=== PATIENT | male | born 1995 | race Caucasian/White ===

== ENCOUNTER 2018-12-16 18:35 | Emergency (ER) | payer OTHER ==
[~2018-12-16] VITALS: Ht 165.1 cm; Wt 75.0 kg
[2018-12-16 18:36] VITALS: BP 119/65
[2018-12-16] MEDS ORDERED: predniSONE 20 MG TAB PO ONE (20:15)
[2018-12-16] MEDS ORDERED: FAMOTIDINE 20 MG TAB PO ONE (20:15)
[2018-12-16] MEDS ORDERED: PRED10TA2 PO (20:44)
[2018-12-16] MEDS ORDERED: PEPC1TAB5 PO (20:44)
== END 2018-12-16 20:49 | disposition home or self-care (01) ==
LOC: M ED 18:35
DX: L25.9 Unspecified contact dermatitis, unspecified cause (principal)

== ENCOUNTER 2019-09-25 18:42 | Emergency (ER) | payer OTHER ==
[~2019-09-25] VITALS: Ht 167.6 cm; Wt 79.8 kg
[~2019-09-25 18:42] MED LIST: PEPC1TAB5 PO; PRED10TA2 PO
[2019-09-25 20:17] LABS: BASO % 0.2 % (0.0-1.0); EOS # 0.1 10^3/uL (0.0-0.5); EOS % 0.5 % (0.0-3.0); HEMATOCRIT 48.7 % (42.0-52.0); HEMOGLOBIN 16.4 g/dl (13.5-17.5); LYMPH # 0.6 10^3/uL (1.5-5.0); LYMPH % 5.6 % (24.0-44.0); MEAN CORPUSCULAR HEMOGLOBIN 29.4 pg (27.0-33.0); MEAN CORPUSCULAR HGB CONC 33.7 g/dl (32.0-36.5); MEAN CORPUSCULAR VOLUME 87.3 fl (80.0-96.0); MONO # 0.6 10^3/uL (0.0-0.8); MONO % 5.4 % (0.0-5.0); NEUTROPHILS # 9.5 10^3/uL (1.5-8.5); PLATELET COUNT, AUTOMATED 248 10^3/uL (150-450); RED BLOOD COUNT 5.58 10^6/uL (4.30-6.10); WHITE BLOOD COUNT 10.8 10^3/uL (4.0-10.0)
[2019-09-25 20:27] LABS: ALBUMIN 4.5 GM/DL (3.2-5.2); ALT/SGPT 31 U/L (12-78); BILIRUBIN,DIRECT 0.2 MG/DL (0.0-0.2); BILIRUBIN,TOTAL 0.6 MG/DL (0.2-1.0); BLOOD UREA NITROGEN 14 MG/DL (7-18); CALCIUM LEVEL 9.4 MG/DL (8.5-10.1); CARBON DIOXIDE LEVEL 32 MEQ/L (21-32); CHLORIDE LEVEL 105 MEQ/L (98-107); CREATININE FOR GFR 1.12 MG/DL (0.70-1.30); GLOMERULAR FILTRATION RATE > 60.0 (>60); GLUCOSE, FASTING 106 MG/DL (70-100); LIPASE 101 U/L (73-393); POTASSIUM SERUM 4.1 MEQ/L (3.5-5.1); SODIUM LEVEL 140 MEQ/L (136-145)
[2019-09-25] MEDS ORDERED: NS 1,000 ML IV ONE (21:30)
[2019-09-25] MEDS ORDERED: ONDANSETRON 4MG/2ML VIAL (J2405) IV ONE (21:30)
[2019-09-25 22:17] LABS: INFLUENZA A AMPLIFICATION NEGATIVE (NEGATIVE); INFLUENZA B AMPLIFICATION NEGATIVE (NEGATIVE)
[2019-09-25] MEDS ORDERED: KETOROLAC 30 MG/ML VIAL (J1885) IV ONE (23:45)
[2019-09-26] MEDS ORDERED: NS 1,000 ML IV ONE
--- NOTE | 2019-09-26 00:12 | REPVR ---
PROCEDURE INFORMATION: Exam: CT Abdomen And Pelvis With Contrast Exam date and time: 09/25/2019 10:23 PM Age: 24 years old Clinical indication: Abdominal pain; Generalized; Patient HX: Vomits; Additional info: Constant abd pain with n/v TECHNIQUE: Imaging protocol: Computed tomography of the abdomen and pelvis with intravenous contrast. Radiation optimization: All CT scans at this facility use at least one of these dose optimization techniques: automated exposure control; mA and/or kV adjustment per patient size (includes targeted exams where dose is matched to clinical indication); or iterative reconstruction. Contrast material: ISO; Contrast volume: 100 ml; Contrast route: AC; COMPARISON: No relevant prior studies available. FINDINGS: Liver: Normal. No mass. Gallbladder and bile ducts: Normal. No calcified stones. No ductal dilation. Pancreas: Normal. No ductal dilation. Spleen: Normal. No splenomegaly. Adrenals: Normal. No mass. Kidneys and ureters: Normal. No hydronephrosis. Stomach and bowel: Moderate stool in the colon. Suspect cecal resection. No abnormal bowel dilatation. No abnormal bowel wall thickening. Negative for colonic diverticulitis. Appendix: Status post appendectomy. Intraperitoneal space: Unremarkable. No free air. No significant fluid collection. Vasculature: Unremarkable. No abdominal aortic aneurysm. Lymph nodes: Unremarkable. No enlarged lymph nodes. Multiple small mesenteric nodes. Bladder: Unremarkable as visualized. Reproductive: Prostate is normal in size. Bones/joints: Unremarkable. No acute fracture. Soft tissues: Unremarkable. IMPRESSION: 1. No evidence of bowel obstruction. 2. Moderate stool in the colon. 3. Status post cecal resection versus appendectomy. Electronically signed by: Susan Reed On 09/26/2019 00:13:46 AM
[2019-09-26] MEDS ORDERED: ONDA4TAB6 PO (00:32)
[2019-09-26 00:40] VITALS: BP 120/79
--- NOTE | 2019-09-26 21:37 | ECGEPIP ---
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
== END 2019-09-26 00:41 | disposition home or self-care (01) ==
LOC: M ED 18:42
DX: R11.2 Nausea with vomiting, unspecified (principal)
CPT/HCPCS: 74177; 80048; 80076; 81001; 83690; 85025; 87502; 93005; 96361; 96374; 96375; 99284; J1885; J2405

== ENCOUNTER 2023-01-28 21:41 | Emergency (ER) | payer OTHER, SELFPAY ==
[~2023-01-28] VITALS: Ht 167.6 cm; Wt 82.3 kg
[~2023-01-28 21:41] MED LIST changes: +ONDA4TAB6 PO
[2023-01-28 21:43] VITALS: BP 118/76
== END 2023-01-29 02:49 | disposition left against medical advice (07) ==
LOC: M ED 21:41
DX: Z53.21 Procedure and treatment not carried out due to patient leaving prior to being seen by health care provider (principal)

== ENCOUNTER → 2024-01-08 | Outpatient (REF) | payer OTHER | LOC: M LAB REF 16:16 | PROVIDERS: ATTEND Physician Assistant | DX: B34.9 Viral infection, unspecified (principal) ==

== ENCOUNTER 2024-03-30 01:10 | Emergency (ER) | payer OTHER ==
[~2024-03-30] VITALS: Ht 167.6 cm; Wt 86.4 kg
[~2024-03-30 01:10] MED LIST changes: -HOLTER MONITOR XX
[2024-03-30 01:49] LABS: BASO % 0.3 % (0.0-1.0); EOS % 0.3 % (0.0-3.0); HEMATOCRIT 42.7 % (42.0-52.0); HEMOGLOBIN 14.7 g/dl (13.5-17.5); LYMPH # 1.3 10^3/uL (1.5-5.0); LYMPH % 16.1 % (24.0-44.0); MEAN CORPUSCULAR HEMOGLOBIN 29.5 pg (27.0-33.0); MEAN CORPUSCULAR HGB CONC 34.4 g/dl (32.0-36.5); MEAN CORPUSCULAR VOLUME 85.7 fl (80.0-96.0); MONO # 0.4 10^3/uL (0.0-0.8); MONO % 4.8 % (2.0-8.0); NEUTROPHILS # 6.2 10^3/uL (1.5-8.5); NEUTROPHILS % 78.2 % (36.0-66.0); PLATELET COUNT, AUTOMATED 245 10^3/uL (150-450); RED BLOOD COUNT 4.98 10^6/uL (4.30-6.10); WHITE BLOOD COUNT 7.9 10^3/uL (4.0-10.0)
[2024-03-30 02:10] LABS: CK-MB VALUE MASS 1.3 NG/ML (<3.6)
[2024-03-30 02:12] LABS: CPK CREATINE PHOSPHOKINASE 209 U/L (46-171); MB/CK RELATIVE INDEX 0.62 (< OR =4)
[2024-03-30 04:16] LABS: BLOOD UREA NITROGEN 12 MG/DL (9-23); CALCIUM LEVEL 9.2 MG/DL (8.5-10.1); CARBON DIOXIDE LEVEL 29 MMOL/L (20-31); CHLORIDE LEVEL 108 MMOL/L (98-107); CREATININE FOR GFR 0.98 MG/DL (0.70-1.30); GLOMERULAR FILTRATION RATE > 60.0 (>60); GLUCOSE, FASTING 102 MG/DL (60-100); POTASSIUM SERUM 3.9 MMOL/L (3.5-5.1); SODIUM LEVEL 141 MMOL/L (136-145)
[2024-03-30 04:17] LABS: CK-MB VALUE MASS 1.2 NG/ML (<3.6)
[2024-03-30 04:23] LABS: CPK CREATINE PHOSPHOKINASE 208 U/L (46-171); MB/CK RELATIVE INDEX 0.57 (< OR =4)
[2024-03-30 11:59] LABS: LIPASE 31 U/L (12-53)
[2024-03-30 12:01] LABS: ALBUMIN 4.1 G/DL (3.2-5.2); ALKALINE PHOSPHATASE 47 U/L (46-116); ALT/SGPT 38 U/L (7.0-40); AST/SGOT 29 U/L (<34); BILIRUBIN,DIRECT 0.2 MG/DL (<0.4); BILIRUBIN,TOTAL 0.6 MG/DL (0.3-1.2); TOTAL PROTEIN 7.2 G/DL (5.7-8.2)
[2024-03-30 12:03] LABS: THYROID STIMULATING HORMONE 1.093 uIU/ML (0.55-4.78)
[2024-03-30] MEDS ORDERED: HOLTER MONITOR XX (12:41)
[2024-03-30 12:53] VITALS: BP 139/73; TEMP 97.7; O2SAT 97
== END 2024-03-30 12:55 | disposition home or self-care (01) ==
LOC: M ED 01:10
DX: R00.2 Palpitations (principal); I45.10 Unspecified right bundle-branch block

== ENCOUNTER → 2024-03-30 | Outpatient (CLI) | payer OTHER ==
[~2024-03-30] MED LIST changes: +HOLTER MONITOR XX; +ONDA-282 PO; -ONDA4TAB6 PO
== END ==
LOC: M EKG 13:15
PROVIDERS: ATTEND Physician Assistant Medical
DX: R00.2 Palpitations (principal); Z53.9 Procedure and treatment not carried out, unspecified reason